=== PATIENT | male | born 1970 | race Caucasian/White ===

== ENCOUNTER 2024-03-07 06:21 | Day surgery (SDC) | payer BC, SELFPAY | END 2024-03-07 10:05 | disposition home or self-care (01) | LOC: GI 06:21 | PROVIDERS: ATTENDING PHYSICIAN Internal Medicine Gastroenterology | DX: R13.10 Dysphagia, unspecified (principal); R12 Heartburn; K44.9 Diaphragmatic hernia without obstruction or gangrene; K31.7 Polyp of stomach and duodenum; K22.89 Other specified disease of esophagus; K31.89 Other diseases of stomach and duodenum; K31.A0 Gastric intestinal metaplasia, unspecified; R11.2 Nausea with vomiting, unspecified; K20.80 Other esophagitis without bleeding | CPT/HCPCS: 43239; 88305; 88342 ==

== ENCOUNTER 2024-10-10 14:17 | Emergency (ER) | payer BC, SELFPAY ==
--- NOTE | 2024-10-10 16:25 | ED.GENMED ---
Addendum entered and electronically signed by Malissa Prater MD 10/10/24 19:06:
Received report regarding patient's formal x-ray report from Dr. Hernandes including rib fracture #10 and shadowing near aorta. Call placed to patient, discussed with him both findings and importance of follow-up with his PCP this week which he is
agreeable to and understands the importance of.
Original Note:
History of Present Illness
General
Chief Complaint: Back Pain
Source: patient and significant other
Time Seen by Provider: 10/10/24 16:12
History of Present Illness
History of Present Illness:
54 yr oldmale presents to the ED after falling backwards on a cement step on Thursday at 5pm. He did not hit his head,got up right away and continued with his evening. He walked around, went to dinner,a nd felt 'fine'. The next day,he noted
discomfort R post lower thoracic area, partic with certain movements. It wasmanageable. Today,h e felt better. then, he sneezed and felt a 'pop' followed by severe stabbing pain in R post lower thorax area. The pain is noted espec with
movement/twisting/getting up,deep breath,e tc. No sob/ant cp, f/c,n, v abd pain numb ting weakness or other complnts. No hx of bleeding, headache, loc,neck pain.
Past History
Past History
ED Past Medical History: Psychiatric and Other (GERD/PUD, DDD)
ED Past Surgical History: Other (st small mass removed from nipple area as an adolescent)
Social History
Tobacco: Non-smoker
Alcohol: Occasional
Drug: None
Phy Exam
Physical Exam
Physical Exam:
GENERAL: Alert , in no apparent distress
EYE: pupils equal and reactive, EOMI, no nystagmus, no photophobia
NECK: Supple, no significant adenopathy, no midline tenderness.
ENT: o/p clr, mmm.
CARDIAC: Regular rate and rhythm .
LUNGS: Clear breath sounds bilaterally, no acute respiratory distress, no wheezes/rales/rhonchi. There is distinct tenderness to palpation noted at the right posterior lower thorax approximately rib 11 mid thorax area. No crepitus, open wound.
Patient is obviously uncomfortable with certain movements and taking a deep breath.
ABDOMEN: Soft, without focal tenderness, no r/g, no cvat
NEUROLOGICAL: Alert and oriented, no focal neuro deficits
SKIN: Warm and dry, skin intact.
MUSCULOSKELETAL: No edema, well perfused.
PSYCH: Normal and appropriate interaction.
Back nontender to midline palpation
Course
Orders/Labs/Results
Orders:
Orders
10/10/24 14:22
Ribs, Right 3 View W/PA Chest [CR Ribs-right 3 Vw W/pa Chest*] Urgent
Comment:
Reason For Exam: fell on concrete on thursday pain right rib area
10/10/24 16:23
diazePAM [Valium Injection] 5 mg IM NOW STA
Vital Signs
Initial and Last Documented VS:
Initial Vital Signs
Temp
98.7 F
10/10/24 14:19
Last Documented Vital Signs
Temp Pulse Resp BP Pulse Ox
98.7 F 56 16 152/90 98
10/10/24 14:19 10/10/24 16:33 10/10/24 16:33 10/10/24 16:33 10/10/24 16:33
*Pulse Oximetry
Patient hypoxic: no
*Critical Care Note
Total Time (30-74mins, 75-104mins- exclusive of procedures): Not Applicable
Update Note
Update Note:
Patient presents to the Emergency Department with back pain after fall____
Number and Complexity of Problems Addressed at the Encounter
� Chronic conditions affecting care:
� Acute Exacerbation and/or Progression of Chronic Illness:
� Differential Diagnosis includes: But not limited to pneumothorax, hemothorax, rib fracture, vertebral fracture, muscle strain, etc. etc.
Amount and/or Complexity of Data to be Reviewed and Analyzed
� I performed an independent evaluation of and my interpretation is:
EKG:
CT:
Xrays: Read by me, no fracture pneumothorax or hemothorax noted
Laboratory Studies:
Other:
� Review of other/old records reveals:
� Clinical information was obtained by an independent historian:
� Prescriptions/Medications Considered but not given: NSAIDs but avoided given ulcer history
� Further testing considered but not performed:
Risk of Complications and/or Morbidity or Mortality of Patient Management
� Social determinants of health affecting care:
� Discussion with other providers (PCP, Hospitalists, Consultants, etc):
� Escalation of care including admission/observation vs risk of discharge considered: Discussion with patient regarding preliminary x-ray results, follow-up required for formal report precautions upon going home including with
medication, and reasons return to the ER. Strongly suspect muscular strain, possible rib fracture not identified on x-ray. Will avoid nonsteroidals given patient's history of ulcers. Discussed with patient portance of follow-up and reasons return
to the ER.
ED Attending Note
-
Portions of this chart may have been created with voice recognition software.� Occasional wrong word or��sound alike� substitutions may have occurred due to the inherent limitations of voice recognition software.
Discharge Plan
Departure
Patient Disposition: Home (Routine Discharge)
Date of Disposition: 10/10/24
Time of Disposition: 16:40
Patient with high blood pressure during this ER visit?: Yes
Condition: Good
Discharge Problem:
Back strain
Instructions: Muscle strain, BLOOD PRESSURE
Prescriptions:
New
cyclobenzaprine 10 mg tablet
10 mg PO BID PRN (Reason: pain/spasm) Qty: 10 0RF
Activity Restrictions/Additional Instructions:
IF YOU DEVELOP INCREASING/NEW/PERSISTENT PAIN, VOMITING, BLEEDING, TROUBLE BREATHING, FEVER, ABDOMINAL PAIN, NUMBNESS, SWELLING, GET WORSE, DO NOT GET BETTER, OR OTHER WORRISOME SIGNS, GO TO THE ER IMMEDIATELY!
Interventions
Interventions:
*Risk Screen - Suicide Last Done: 10/10/24 14:19
*General Assessment Last Done: 10/10/24 16:33
*Neglect/Abuse Screening Last Done: 10/10/24 14:19
*ED- Fall Risk Assessment Last Done: 10/10/24 16:33
*ED COVID-19 Vaccine History Last Done: 10/10/24 16:33
ED-Musculoskeletal Assessment Last Done: 10/10/24 16:33
Discharge Date and Time
Print Language: LITHUANIAN
[2024-10-10 16:33] VITALS: BP 152/90
[2024-10-10] MEDS: VALIUM INJECTION 5 MG IM (16:34)
== END 2024-10-10 16:57 | disposition home or self-care (01) ==
LOC: EMR 14:17
PROVIDERS: EMERGENCY PHYSICIAN Emergency Medicine
DX: S22.39XA Fracture of one rib, unspecified side, initial encounter for closed fracture (principal); S39.012A Strain of muscle, fascia and tendon of lower back, initial encounter; W17.89XA Other fall from one level to another, initial encounter; R03.0 Elevated blood-pressure reading, without diagnosis of hypertension; K21.9 Gastro-esophageal reflux disease without esophagitis; Z87.11 Personal history of peptic ulcer disease; M51.35 Other intervertebral disc degeneration, thoracolumbar region
CPT/HCPCS: 99284; 96372; 71101